=== PATIENT | male | born 1990 | race Caucasian/White ===

== ENCOUNTER 2017-07-02 10:30 | Emergency (ER) | payer MEDICAID, OTHER ==
[2017-07-02 10:36] VITALS: BMI 24.4
--- NOTE | 2017-07-02 11:15 | C.PDOC ---
History Of Present Illness 27 y/o male presents to ED with complaints of dysuria and penile discharge for 3 days. Patient had unprotected sex with male partner who confessed to him he was diagnosed with Chlamydia. Patient denies fever, chills, abdominal pain, back pain or any other complaints at this time. denies any rash or lesions to penis or genital area. Time Seen by Provider: 07/02/17 11:02 Chief Complaint (Nursing): Male Genitourinary History Per: Patient History/Exam Limitations: no limitations Onset/Duration Of Symptoms: Days Associated Symptoms: Urinary Symptoms Past Medical History Reviewed: Historical Data, Nursing Documentation, Vital Signs Vital Signs: Last Vital Signs Temp 98.0 F 07/02/17 12:20 Pulse 72 07/02/17 12:20 Resp 18 07/02/17 12:20 BP 108/68 07/02/17 12:20 Pulse Ox 99 07/02/17 14:46 - Medical History PMH: No Chronic Diseases Surgical History: No Surg Hx Family History: States: No Known Family Hx - Social History Hx Tobacco Use: No Hx Alcohol Use: No Hx Substance Use: No - Immunization History Hx Tetanus Toxoid Vaccination: No Hx Influenza Vaccination: No Hx Pneumococcal Vaccination: No Review Of Systems Constitutional: Negative for: Fever, Chills Gastrointestinal: Negative for: Nausea, Vomiting, Abdominal Pain Genitourinary: Positive for: Dysuria, Penile Discharge Skin: Negative for: Rash Physical Exam - Physical Exam Additional Physical Exam Comments: Constitutional: No acute distress. WDWN. Cardiovascular: Regular rate and rhythm. no murmur Chest: No tenderness. Respiratory: Clear to auscultation bilaterally. GI: Soft. Nontender. Nondistended. Normoactive bowel sounds. No rebound. No guarding. Back: No CVA and no mid-line tenderness. Musculoskeletal: No tenderness or swelling of extremities. Skin: No rash. Neurologic: Alert, no focal deficit. ED Course And Treatment O2 Sat by Pulse Oximetry: 99 (RA) Pulse Ox Interpretation: Normal Medical Decision Making Medical Decision Making: Plan: Rocephin, Azythromycin, Chlamydia/GC Progress: Patient treated for chlamydia/GC and discharged home with advised follow up to be checked for other STD, and recommended safe sex practices. pt believes his partner has been treated. Disposition Counseled Patient/Family Regarding: Studies Performed, Diagnosis, Need For Followup - Disposition Referrals: [facility] [Outside] [facility] [Outside] Disposition: HOME/ ROUTINE Disposition Time: 12:03 Condition: STABLE Additional Instructions: Usted armando sido tratado por gonorrea y clamidia hoy. Se recomienda encarecidamente que realice un seguimiento en la clnica md[facility] o en [facility] para realizar ms pruebas y asegurarse de que la infeccin se resuelva. Recomiende prcticas de sexo seguro solamente, siempre use condones por favor. Regrese a la kane de emergencias por cualquier empeoramiento de los s ntomas. Por favor, asegrese de que plascencia priti haya sido tratada tambin. You have been treated for gonorrhea and chlamydia today. It is highly recommend that you follow up in medical clinic or an STD clinic for further testing to make sure infection resolved. Recommend safe sex practices only, always use condoms please. Return to ER for any worsening symptoms. Please make sure that your partner has been treated as well. Instructions: Sexually Transmitted Diseases (ED), Safe Sex (ED) Forms: [employer] (Macedonian) Print Language: HUNGARIAN - Clinical Impression Clinical Impression: Urethritis - PA / [employer] / Resident Statement MD/DO has reviewed & agrees with the documentation as recorded. - Scribe Statement The provider has reviewed the documentation as recorded by the Danielaibe Charli Bell All medical record entries made by the Scribe were at my direction and personally dictated by me. I have reviewed the chart and agree that the record accurately reflects my personal performance of the history, physical exam, medical decision making, and the department course for this patient. I have also personally directed, reviewed, and agree with the discharge instructions and disposition.
[2017-07-02] MEDS ORDERED: cefTRIAXone (Rocephin) 250 mg Inj IM STA (11:17)
[2017-07-02 11:36] LABS: RBC URINE 26 /hpf (0-3); URINE BACTERIA RARE (<OCC); URINE BILIRUBIN NEGATIVE (NEGATIVE); URINE BLOOD 1+ (NEGATIVE); URINE COLOR Yellow (YELLOW); URINE GLUCOSE (UA) NORMAL (Normal); URINE KETONE NEGATIVE (NEGATIVE); URINE LEUKOCYTE ESTERASE 3+ Leu/uL (Negative); URINE PROTEIN NEGATIVE (NEGATIVE); URINE UROBILINOGEN NORMAL mg/dL (0.2-1.0); WBC URINE 240 /hpf (0-5)
[2017-07-02 12:22] VITALS: BP 108/68; PULSE 72; RESP 18; TEMP 98
[2017-07-02 14:45] VITALS: O2SAT 99
== END 2017-07-02 12:23 | disposition home or self-care (01) ==
LOC: C.ER 10:30
DX: N34.2 Other urethritis (principal)
CPT/HCPCS: 81001; 87086; 87491; 87591; 96372; 99285; J0696